=== PATIENT | female | born 1970 | race Caucasian/White ===

== ENCOUNTER 2023-12-27 10:07 | Day surgery (SDC) | payer BC ==
[2023-12-27] MEDS: Lactated Ringers 1,000 ML IV SCH (10:37)
[2023-12-27] MEDS ORDERED: propofoL 50 ML ONE (11:44)
[2023-12-27] MEDS ORDERED: Propofol 200 MG/20 ML SDV ONE ×2 (12:31→12:47)
== END 2023-12-27 13:35 | disposition home or self-care (01) ==
LOC: MW.SDS 10:07
PROVIDERS: ATTEND Surgery
DX: Z12.11 Encounter for screening for malignant neoplasm of colon (principal); D12.2 Benign neoplasm of ascending colon; D12.6 Benign neoplasm of colon, unspecified; D12.8 Benign neoplasm of rectum; K64.9 Unspecified hemorrhoids; Z86.0100 Personal history of colon polyps, unspecified; E11.9 Type 2 diabetes mellitus without complications; E78.1 Pure hyperglyceridemia
CPT/HCPCS: 45385; J2704; J7120; 00811